=== PATIENT | male | born 1950 | race Caucasian/White ===

== ENCOUNTER → 2023-08-31 10:17 | Outpatient (CLI) | payer MEDICARE, SELFPAY ==
--- NOTE | 2023-08-31 10:19 | DI.RAD.S_ITS ---
PROCEDURE: FL BARIUM SWALLOW W SPEECH INDICATIONS: Dysphagia COMPARISON: None. TECHNIQUE: Examination was conducted in conjunction with speech pathology per standard protocol. In the lateral projection, filming was performed of the patient swallowing. AP projection filming may also be performed with patient swallowing. COMPARISON: FINDINGS: Left pacemaker. Function: The oral preparatory phase appears normal, with proper containment. The subsequent oral propulsive phase, pharyngeal phase, and esophageal phase of swallowing also appear normal with all proffered substances. Brief delay of passage of food bolus at the upper esophagus. A barium tablet passes through the gastroesophageal junction. No laryngotracheal penetration or aspiration. No pathologic vallecular pooling. Morphology: No cricopharyngeal bar is identified. No cervical esophageal webs. No Zenker's diverticulum. No strictures. IMPRESSION: Brief delay of passage of the food bolus at the upper esophagus. No aspiration. Please see separately dictated speech pathologist's report. Dictated by: Phil Genao M.D. on 08/31/2023 at 17:10 Approved by: Phil Genao M.D. on 08/31/2023 at 17:14
--- NOTE | 2023-08-31 13:48 | ST.SWALLOW ---
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 Stanton. According to the pt, he has had MBSS assessments in the past; his most recent was approximately a year ago at [facility]. Pt reported that when eating, he experiences a sensation of foods sticking high in his throat. He described needing to drink a lot of liquid/ water in order to push the foods down. He noted that this swallow difficulty has been going on for years. Pt denied any surgery/injury to this neck. He also denied having GERD as well as and neurological diagnoses. Subjective Observations Pt was seated in the fluoroscopy chair with directions and procedures described for her. He indicated she understood and agreed to proceed. Pt brought some cooked chicken as well as several capsules with him for use during the trials. Patient Positioning Position View Lat-A/P Imaging Lateral View Textures Administered Trials Presented Thin Liquid via Spoon (IDDSI 0 ),Thin Liquid via Cup (IDDSI 0 ),Regular (IDDSI 7) Barium Tablet Yes The IDDSI Framework Protocol: IDDSI.1 Oral Impairment Source: The Modified Barium Swallow Impairment Profile (MBSImP??) Lip Closure No labial escape Tongue Control During Bolus Hold Cohesive bolus between tongue to palatal seal Bolus Preparation/Mastication Timely & efficient chewing & mashing Bolus Transport/Lingual Motion Brisk tongue motion Oral Residue Complete oral clearance Initiation of Pharyngeal Swallow Bolus head at posterior laryngeal surface of epiglottis Additional Oral Impairment Observations OME and DKS were observed to be WNL. Mastication observed with rotary chew pattern. Good bolus formation, control and AP transition. Pharyngeal Impairment Source: The Modified Barium Swallow Impairment Profile (MBSImP??) Soft Palate Elevation No bolus between soft palate & pharyngeal wall Laryngeal Elevation Part.sup.move.thyroid cart/ part.approx.arytenoids to epiglot.petiole Anterior Hyoid Excursion Partial anterior movement Epiglottic Movement Complete inversion Laryngeal Vestibular Closure Incomplete; narrow column air/ contrast in laryngeal vestibule Pharyngeal Stripping Wave Present - complete Pharyngoesophageal Segment Opening Complete distention & complete duration; no obstruction of flow Tongue Base Retraction Narrow column of contrast/air betwn tongue base & post. pharyngeal wall Pharyngeal Residue Collection of residue within/ on pharyngeal structures Location Diffuse (>3 areas) Additional Pharyngeal Impairment *CP bar was observed Observations *Mild tongue base retraction weakness with reduced hyolaryngeal elevation and movement -Epiglottic inversion complete *Flash laryngeal penetration observed with consecutive swallows of thin liquid (PAS 2 - penetrates larynx above folds, no visible laryngeal residue) Following trials of solid foods, after the foods had cleared the esophagus, the pt noted he had the sensation of foods being stuck in his throat (pointing to the Laryngeal area. The pharynx was clear of all contrast at that time. A/P View Textures Administered Trials Presented Thin Liquid via Cup (IDDSI 0), Regular (IDDSI 7) The IDDSI Framework Protocol: IDDSI.1 A/P View Observations Pharyngeal Contraction Complete Esophageal Clearance Upright Position Esophageal retention Esophageal Function Slowed Clearing Additional A-P Observations In lateral view there was mild retention of semi-solid and solid food trials proximal to the UES. Pt noted he had the sensation of foods being stuck in his throat (pointing to the laryngeal area (the pharynx was clear of all contrast material) This eventually cleared the esophagus without need for additional water. In AP position, The previous trials had cleared the esophagus into the stomach. The pt remarked he continued to have a sensation in his throat area of foods being stuck. The capsules, barium tablet and the solid food trials were observed to clear the esophagus with some esophageal retention of the material. However, the pt's esophageal phase appeared to be WFL. Several minutes after the MBSS trials were completed, the pt continued to c/o a sensation of foods being stuck in his pharynx even though all trials had cleared to his stomach. Clinical Impressions Dysphagia Type WNL Findings Oral, pharyngeal phases of swallowing were observed to be WNL. Esophageal phase indicated mild esophageal retention. However, he pt remarked he continued to have a sensation in his throat area of foods being stuck. Given the consistency of the pt 's complaints during and after the MBSS, referral to GI and further assessment may be indicated. Patient Appropriate for Therapy No Recommendations Treatment Plan Recommended Referrals GI Consult
== END ==
LOC: RAD 10:18
PROVIDERS: Referring Provider Surgery; Visit Provider Surgery
DX: R13.10 Dysphagia, unspecified (principal); Z95.0 Presence of cardiac pacemaker
CPT/HCPCS: 74230; 92611